=== PATIENT | female | born 1965 | race Caucasian/White ===

== ENCOUNTER 2017-09-23 03:20 | Emergency (ER) | payer OTHER, SELFPAY ==
[2017-09-23 04:39] LABS: Absolute Lymphocytes (CBC) 2.6 K/uL (0.7-4.9); Absolute Monocytes 0.5 K/uL (0.1-1.3); Absolute Neutrophil 2.1 K/uL (1.8-8.0); Basophils % 0.7 % (0-1.3); Eosinophils % 3.8 % (0-4.4); Hematocrit 35.7 % (36.0-45.0); Lymphocytes % 47.6 % (15.3-44.8); MCH 27.9 pg (27.0-35.0); MCV 82.5 fL (80-100); MPV 7.7 fL (7.6-11.3); Monocytes % 9.1 % (3.3-12.3); RBC Red Blood Cell Count 4.33 M/uL (3.86-4.86)
[2017-09-23] MEDS ORDERED: NA CHLORIDE 0.9% 1,000 ML ONE (04:42)
[2017-09-23 04:57] LABS: Protime INR 0.99
[2017-09-23 05:00] LABS: Barbiturates NEGATIVE (NEGATIVE); Benzodiazepines NEGATIVE (NEGATIVE); Cocaine POSITIVE (NEGATIVE); METHAMPHETAM POSITIVE (NEGATIVE); Methadone NEGATIVE (NEGATIVE); Opiates NEGATIVE (NEGATIVE); Phencyclidine NEGATIVE (NEGATIVE); THC Cannibis POSITIVE (NEGATIVE)
[2017-09-23 05:05] LABS: Urine Blood NEGATIVE (NEG); Urine Glucose NEGATIVE (NEG); Urine Protein 1+ (NEG); Urine Specific Gravity >1.030 (1.005-1.030); Urine pH 5.5 (5.0-7.0)
[2017-09-23 05:06] LABS: ALT/SGPT 31 U/L (12-78); AST/SGOT 28 U/L (15-37); Albumin 3.4 g/dL (3.4-5.0); Alkaline Phosphatase 68 U/L (45-117); BUN Blood Urea Nitrogen 22 mg/dL (7-18); Bicarbonate 29 mmol/L (21-32); Bilirubin Direct 0.2 mg/dL (0-0.2); Bilirubin Total 0.7 mg/dL (0.2-1.0); Glucose Level 89 mg/dL (74-106); Potassium 3.1 mmol/L (3.5-5.1); Protein, Total 6.9 g/dL (6.4-8.2); Sodium Level 144 mmol/L (136-145)
[2017-09-23 05:11] LABS: Alcohol Serum/Plasma < 3 mg/dL (0-3)
--- NOTE | 2017-09-23 05:41 | ER ---
Nurse's Notes [facility] Name: Love Krause Age: 52 yrs Sex: Female : 1965 Arrival Date: 09/23/2017 Time: 03:21 Bed 19 Private MD: Diagnosis: Altered mental status, unspecified;Abuse of non-psychoactive substances;Cocaine abuse;Hypokalemia Presentation: 09/23 03:33 Presenting complaint: EMS states: Pt found unresponsive in vehicle in [place]. Police jl3 not able to keep pt awake, so EMS was called to transport to ER. Pt states smoked marijuana, but "it doesn't feel like it." Lethargic, unable to actively participate in interview. Transition of care: patient was not received from another setting of care. Onset of symptoms was September 23, 2017 at 02:00. Risk Assessment: Do you want to hurt yourself or someone else? Patient reports no desire to harm self or others. Initial Sepsis Screen: Does the patient meet any 2 criteria? No. Patient's initial sepsis screen is negative. Care prior to arrival: None. 03:33 Method Of Arrival: EMS: [facility] jl3 03:33 Acuity: DARBY 3 jl3 07:05 Initial Sepsis Screen: Does the patient meet any 2 criteria? No. Patient's initial jl3 sepsis screen is negative. Does the patient have a suspected source of infection? No. Patient's initial sepsis screen is negative. Triage Assessment: 03:25 General: Appears unkempt, Behavior is listless, Patient is lethargic, confused, jl3 disoriented, States "I smoked something, It was supposed to be marijuana.". Pain: Denies pain. EENT: Eyes red, appear swollen. Patient cannot give baseline. Neuro: Level of Consciousness is lethargic, Oriented to person, Sedimentationist are weak bilaterally Weakness Gait is Did not test gait. Moved from EMS gurney to ER bed. Speech is slurred, Pupils are sluggish, constricted, Tingling in right hand, left hand, right foot and left foot. Cardiovascular: Rhythm is sinus bradycardia Chest pain is denied. Respiratory: Respiratory effort is weak, Respiratory pattern is regular, symmetrical. SENIOR SERVICE TECHNICIAN: 07:06 LMP N/A - Irregular menses jl3 Historical: - Allergies: 03:44 Unable to obtain; jl3 - PMHx: 03:43 Unable to obtain; jl3 - Immunization history:: Pt unable to report. - Social history:: Patient uses alcohol, street drugs, caffeine, over the counter diet medications, Marijuana, Smoking status: Patient uses tobacco products, denies chronic smoking, but will smoke occasionally. - Family history:: not pertinent. - Ebola Screening: : Patient denies exposure to infectious person Patient denies travel to an Ebola-affected area in the 21 days before illness onset No symptoms or risks identified at this time. Screenin:45 Tuberculosis screening: no symptoms. jl3 05:30 Abuse screen:. Nutritional screening: No deficits noted. Fall Risk IV access (20 jl3 points). Gait- Weak (10 pts.). Mental Status- Overestimates/Forgets Limitations (15 pts.). Total Cabrera Fall Scale indicates High Risk Score (45 or more points). Fall prevention measures have been instituted. Side Rails Up X 2 Placed Close to Nursing Station Frequent Obs/Assessments Occuring As available patient and family educated on Fall Prevention Program and Strategies. Assessment: 03:36 General: Appears unkempt, Behavior is listless, Lethargic, confused. Reports tingling jl3 to hands and feet. General: Pt states was in vehicle, smoked what she believed to be marijuana. States "doesn't feel like" marijuana. Behavior lethargic, pt confused, unkempt, unable to give personal information.. Pain: Denies pain. Neuro: Reactions are slow. Bilateral upper and lower strengths weak. 05:32 Reassessment: Pt remains lethargic, wakes to loud verbal stimuli/physical stimuli. jl3 Disoriented, lethargic, confused. has seen pt. Visible from nurse's station, door \\T\\ curtain open.. 07:06 Reassessment: Pt able to stand, walk to W/C. Released to police custody r/t warrants.. jl3 Vital Signs: 03:39 BP 133 / 82; Pulse 57; Resp 18; Pulse Ox 98% ; Pain 0/10; jl3 05:28 BP 130 / 88; Pulse 57; Resp 18; Pulse Ox 100% ; Pain 0/10; jl3 06:18 BP 122 / 88; Pulse 52; Pulse Ox 99% ; Pain 0/10; jl3 07:02 BP 131 / 83; Pulse 60; Resp 18; Pulse Ox 99% ; Pain 0/10; jl3 Vitals: 03:39 Cardiac Rhythm Assessment Regular Sinus damon. jl3 ED Course: 03:21 Patient arrived in ED. am2 03:25 Pedro Pablo Elaine LVN is Primary Nurse. jl3 03:35 Triage completed. jl3 03:44 Arm band placed on left wrist. jl3 04:09 Angelito Yarbrough MD is Attending Physician. [facility] 04:33 Initial lab(s) drawn, by co, sent to lab. Inserted saline lock: 20 gauge in right ks6 antecubital area, using aseptic technique. Blood collected. 05:31 Patient has correct armband on for positive identification. Side rails up X2. Pulse ox jl3 on. 05:[address] via stretcher. kw1 06:08 CT Head Brain wo Cont In Process Unspecified. EDMS 06:08 CT completed. Patient tolerated procedure well. Patient moved back from CT. kw1 07:03 No provider procedures requiring assistance completed. IV discontinued, intact, jl3 bleeding controlled, No redness/swelling at site. Pressure dressing applied. Administered Medications: 04:49 Drug: NS 0.9% 1000 ml Route: IV; Rate: 1 bolus; Infused Over: 20 mins; Site: right jl3 antecubital; Delivery: Primary tubing; 05:25 Follow up: IV Status: Completed infusion; IV Intake: 1000ml jl3 06:18 Follow up: BP 122 / 88; Pulse 52 bpm; Pulse Ox 99% ; Pain 0/10 Adult; IV Intake: 1000ml jl3 06:51 Drug: Potassium Effervescent Tablet 50 mEq Route: PO; jl3 07:07 Follow up: Response: No adverse reaction jl3 Intake: 05:25 IV: 1000ml; Total: 1000ml. jl3 06:18 IV: 1000ml; Total: 2000ml. jl3 Outcome: 05:40 Discharge ordered by . braulio 07:04 Discharged to Law Enforcement jl3 07:04 Condition: improved 07:04 Discharge instructions given to patient, police, Instructed on discharge instructions. 07:08 Patient left the ED. jl3 Signatures: Dispatcher [employer] EDOR Angelito Yarbrough MD MD cha Lowman, John, LVN LVN jl3 Jeni Walker am2 Carolina Rocha kw1 Miek García ks6
--- NOTE | 2017-09-23 05:41 | EDPHYS ---
Physician Documentation [facility] Name: Love Krause Age: 52 yrs Sex: Female : 1965 Arrival Date: 09/23/2017 Time: 03:21 Bed 19 Private MD: ED Physician Angelito Yarbrough HPI: 09/23 04:27 This 52 yrs old Female presents to ER via EMS with complaints of ams. braulio 04:27 police sent, possible drug affects. Onset: The symptoms/episode began/occurred just braulio prior to arrival. Severity of symptoms: At their worst the symptoms were mild in the emergency department the symptoms are unchanged. It is unknown whether or not the patient has had similar symptoms in the past. CLINICAL REHABILITATION LIAISON: 07:06 LMP N/A - Irregular menses jl3 Historical: - Allergies: 03:44 Unable to obtain; jl3 - PMHx: 03:43 Unable to obtain; jl3 - Immunization history:: Pt unable to report. - Social history:: Patient uses alcohol, street drugs, caffeine, over the counter diet medications, Marijuana, Smoking status: Patient uses tobacco products, denies chronic smoking, but will smoke occasionally. - Family history:: not pertinent. - Ebola Screening: : Patient denies exposure to infectious person Patient denies travel to an Ebola-affected area in the 21 days before illness onset No symptoms or risks identified at this time. ROS: 04:27 Constitutional: Negative for fever, chills, and weight loss, Eyes: Negative for injury, braulio pain, redness, and discharge, ENT: Negative for injury, pain, and discharge, Neck: Negative for injury, pain, and swelling, Cardiovascular: Negative for chest pain, palpitations, and edema, Respiratory: Negative for shortness of breath, cough, wheezing, and pleuritic chest pain, Abdomen/GI: Negative for abdominal pain, nausea, vomiting, diarrhea, and constipation, Back: Negative for injury and pain, : Negative for injury, bleeding, discharge, and swelling, MS/Extremity: Negative for injury and deformity, Skin: Negative for injury, rash, and discoloration, Psych: Negative for depression, anxiety, suicide ideation, homicidal ideation, and hallucinations, Allergy/Immunology: Negative for hives, rash, and allergies, Endocrine: Negative for neck swelling, polydipsia, polyuria, polyphagia, and marked weight changes, Hematologic/Lymphatic: Negative for swollen nodes, abnormal bleeding, and unusual bruising. 04:27 Neuro: Positive for altered mental status. Exam: 04:27 Constitutional: This is a well developed, well nourished patient who is awake, alert, braulio and in no acute distress. Head/Face: Normocephalic, atraumatic. Eyes: Pupils equal round and reactive to light, extra-ocular motions intact. Lids and lashes normal. Conjunctiva and sclera are non-icteric and not injected. Cornea within normal limits. Periorbital areas with no swelling, redness, or edema. ENT: Nares patent. No nasal discharge, no septal abnormalities noted. Tympanic membranes are normal and external auditory canals are clear. Oropharynx with no redness, swelling, or masses, exudates, or evidence of obstruction, uvula midline. Mucous membranes moist. Neck: Trachea midline, no thyromegaly or masses palpated, and no cervical lymphadenopathy. Supple, full range of motion without nuchal rigidity, or vertebral point tenderness. No Meningismus. Chest/axilla: Normal chest wall appearance and motion. Nontender with no deformity. No lesions are appreciated. Cardiovascular: Regular rate and rhythm with a normal S1 and S2. No gallops, murmurs, or rubs. Normal PMI, no JVD. No pulse deficits. Respiratory: Lungs have equal breath sounds bilaterally, clear to auscultation and percussion. No rales, rhonchi or wheezes noted. No increased work of breathing, no retractions or nasal flaring. Abdomen/GI: Soft, non-tender, with normal bowel sounds. No distension or tympany. No guarding or rebound. No evidence of tenderness throughout. Back: No spinal tenderness. No costovertebral tenderness. Full range of motion. Female : Normal external genitalia. Skin: Warm, dry with normal turgor. Normal color with no rashes, no lesions, and no evidence of cellulitis. MS/ Extremity: Pulses equal, no cyanosis. Neurovascular intact. Full, normal range of motion. Psych: Awake, alert, with orientation to person, place and time. Behavior, mood, and affect are within normal limits. 04:27 Neuro: Orientation: appropriate for stated age, no acute changes, Mentation: slow to respond, Memory: is normal, Motor: no acute changes, moves all fours, Sensation: no obvious gross deficits, appropriate no acute changes, Gait: not tested. Babinski testing is normal, seizure activity, is not displayed by the patient. Vital Signs: 03:39 BP 133 / 82; Pulse 57; Resp 18; Pulse Ox 98% ; Pain 0/10; jl3 05:28 BP 130 / 88; Pulse 57; Resp 18; Pulse Ox 100% ; Pain 0/10; jl3 06:18 BP 122 / 88; Pulse 52; Pulse Ox 99% ; Pain 0/10; jl3 07:02 BP 131 / 83; Pulse 60; Resp 18; Pulse Ox 99% ; Pain 0/10; jl3 MDM: 04:09 Patient medically screened. [facility] 04:31 Data reviewed: vital signs, nurses notes, lab test result(s), EKG. [facility] 09/23 04:02 Order name: Acetaminophen; Complete Time: 05:39 [facility] 09/23 04:02 Order name: Basic Metabolic Panel; Complete Time: 05:39 [facility] 09/23 04:02 Order name: CBC with Diff; Complete Time: 04:55 [facility] 09/23 04:02 Order name: ETOH Level; Complete Time: 05:39 [facility] 09/23 04:02 Order name: Hepatic Function; Complete Time: 05:39 [facility] 09/23 04:02 Order name: PT-INR; Complete Time: 05:09 [facility] 09/23 04:02 Order name: Ptt, Activated; Complete Time: 05:09 [facility] 09/23 04:02 Order name: Salicylate; Complete Time: 05:09 [facility] 09/23 04:02 Order name: Urine Drug Screen; Complete Time: 05:09 [facility] 09/23 04:02 Order name: EKG; Complete Time: 04:03 [facility] 09/23 04:38 Order name: Urine Dipstick--Ancillary (enter results); Complete Time: 05:09 [facility] 09/23 05:42 Order name: CT Head Brain wo Cont [facility] 09/23 04:02 Order name: EKG - Nurse/Tech; Complete Time: 04:34 [facility] 09/23 04:02 Order name: IV Saline Lock; Complete Time: 04:34 [facility] 09/23 04:02 Order name: Labs collected and sent; Complete Time: 04:34 [facility] 09/23 04:02 Order name: Urine Dipstick-Ancillary (obtain specimen); Complete Time: 04:34 rg2 Administered Medications: 04:49 Drug: NS 0.9% 1000 ml Route: IV; Rate: 1 bolus; Infused Over: 20 mins; Site: right jl3 antecubital; Delivery: Primary tubing; 05:25 Follow up: IV Status: Completed infusion; IV Intake: 1000ml jl3 06:18 Follow up: BP 122 / 88; Pulse 52 bpm; Pulse Ox 99% ; Pain 0/10 Adult; IV Intake: 1000ml jl3 06:51 Drug: Potassium Effervescent Tablet 50 mEq Route: PO; jl3 07:07 Follow up: Response: No adverse reaction jl3 Disposition: 09/23/17 05:40 Discharged to Home. Impression: Altered mental status, unspecified, Abuse of non-psychoactive substances, Cocaine abuse, Hypokalemia. - Condition is Stable. - Discharge Instructions: Stimulant Use Disorder-Cocaine, Confusion, Potassium Content of Foods, Polysubstance Abuse, Altered Mental Status, Hypokalemia. - Medication Reconciliation Form, Thank You Letter, Antibiotic Education, Prescription Opioid Use form. - Follow up: Private Physician; When: 2 - 3 days; Reason: Recheck today's complaints, Continuance of care, Re-evaluation by your physician. - Problem is new. - Symptoms have improved. Signatures: Dispatcher [employer] EDMoira Galeana rg2 Angelito Yarbrough MD MD cha Lowman, John, LVN [employer] jl3 Corrections: (The following items were deleted from the chart) 07:08 05:40 09/23/2017 05:40 Discharged to Home. Impression: Altered mental status, jl3 unspecified; Abuse of non-psychoactive substances; Cocaine abuse; Hypokalemia. Condition is Stable. Discharge Instructions: Confusion, Polysubstance Abuse, Altered Mental Status, Stimulant Use Disorder-Cocaine. Forms are Medication Reconciliation Form, Thank You Letter, Antibiotic Education, Prescription Opioid Use. Follow up: Private Physician; When: 2 - 3 days; Reason: Recheck today's complaints, Continuance of care, Re-evaluation by your physician. Problem is new. Symptoms have improved. braulio
[2017-09-23] MEDS ORDERED: POTASSIUM 25 MEQ EFFERV TAB ONE (05:52)
--- NOTE | 2017-09-23 08:12 | RAD REPORT ---
EXAM DESCRIPTION: CT - Head Brain Wo Cont - 09/23/2017 7:09 am CLINICAL HISTORY: CONFUSED Drowsiness COMPARISON: No comparisons TECHNIQUE: All CT scans are performed using dose optimization technique as appropriate and may inclu de automated exposure control or mA/KV adjustment according to patient size. FINDINGS: No intracranial hemorrhage, hydrocephalus or extra-axial fluid collection.No areas of brai n edema or evidence of midline shift. The paranasal sinuses and mastoids are clear. The calvarium is intact. IMPRESSION: No acute intracranial abnormality.
--- NOTE | 2017-09-24 10:32 | EKG ---
Test Date: 2017-09-23 Test Time: 04:28:47 Senior Engineering Manager: MONICA MEASUREMENT RESULTS: Intervals: Rate: 50 [place]: 142 QRSD: 104 QT: 490 QTc: 446 [place]: P: 77 [place]: 142 QRS: 89 T: 79 INTERPRETIVE STATEMENTS: Sinus bradycardia Otherwise normal ECG No previous ECG available for comparison Electronically Signed On 09-24-17 10:27:39 CDT by Patrice Beauchamp
== END 2017-09-23 07:08 | disposition home or self-care (01) ==
LOC: ER 03:20
DX: F14.10 Cocaine abuse, uncomplicated (principal); F55.8 Abuse of other non-psychoactive substances; E87.6 Hypokalemia; Z72.0 Tobacco use
CPT/HCPCS: 36415; 70450; 80048; 80076; 80307; 80320; 80329; 81003; 85025; 85610; 85730; 93005; 96360; 99285; J7030